=== PATIENT | female | born 1940 | race African-American/Black ===

== ENCOUNTER 2018-05-11 18:25 | Inpatient (IN) | payer MEDICARE, MEDICAID ==
[~2018-05-11] VITALS: Ht 167.6 cm; Wt 68.0 kg
[2018-05-11] MEDS ORDERED: ACETAMINOPHEN 325MG TABLET PO STA (21:33)
[2018-05-11] MEDS ORDERED: SODIUM CHLORIDE 0.9% 1,000 ML IV ONE ×2 (21:33→23:30)
[2018-05-11 21:48] LABS: CLARITY URINE TURBID (CLEAR); COLOR URINE DARK YELLOW (YELLOW); KETONES URINE TRACE (NEGATIVE); LEUKOCYTE ESTERASE URINE 1+ (NEGATIVE); NITRITE URINE NEGATIVE (NEGATIVE); OCCULT BLOOD URINE 2+ (NEGATIVE); PROTEIN URINE 4+ (NEGATIVE)
[2018-05-11 21:59] LABS: EOSINOPHILS % 0.4 % (0.0-5.0); HEMATOCRIT. 39.6 % (36.0-48.0); HEMOGLOBIN. 12.6 g/dL (12.0-16.0); MEAN CORPUSCULAR HEMOGLOBIN 20.5 pg (28.0-32.0); MEAN CORPUSCULAR VOLUME 64.2 fL (81.0-99.0); MEAN PLATELET VOLUME 10.7 fl (7.4-10.4); MONOCYTES % 14.2 % (2.0-8.0); NEUTROPHILS % 67.4 % (40.0-76.0); PLATELET 112 x1000/uL (130-400); RED BLOOD CELL COUNT 6.16 mill/uL (4.2-5.4); RED CELL DISTRIBUTION WIDTH 15.4 % (11.6-14.6)
[2018-05-11 22:02] LABS: CHLORIDE 100 mEq/L (98-107)
[2018-05-11 22:05] LABS: INR 1.1; PROTHROMBIN TIME 10.7 sec (9.1-11.1)
[2018-05-11 22:25] LABS: PLATELET ESTIMATE DECREASED
[2018-05-11] MEDS ORDERED: CEFTRIAXONE 1 G PREMIX 50 ML IV ONE (23:30)
[2018-05-12 11:28] VITALS: BP 103/61
[2018-05-12 11:32] VITALS: BP 103/61
[2018-05-12 12:00] VITALS: BP 103/61
[2018-05-12] MEDS ORDERED: HYDROCODONE/ACETAMINOPHEN 5/325MG TABLET PO PRN (12:00)
[2018-05-12] MEDS ORDERED: MORPHINE SULFATE 4 MG/ML CPJ (NOT FOR IM USE) IV PRN (12:00)
[2018-05-12] MEDS ORDERED: CLONIDINE 0.1MG TABLET PO PRN (12:00)
[2018-05-12] MEDS ORDERED: ONDANSETRON HCL 4MG/2ML INJ IV PRN (12:00)
[2018-05-12] MEDS ORDERED: LORAZEPAM 2MG/ML CPJ IV PRN (12:00)
[2018-05-12] MEDS ORDERED: ENOXAPARIN 40MG/0.4ML SYR SUBCUT SCH (12:00)
[2018-05-12] MEDS: FERROUS SULFATE 325MG TABLET PO SCH (12:57)
[2018-05-12] MEDS: THIAMINE HCL 100MG TABLET PO SCH (12:57)
[2018-05-12] MEDS: SODIUM CHLORIDE 0.9% 1,000 ML IV SCH (13:27)
[2018-05-12] MEDS: ENOXAPARIN 30MG/0.3ML SYR SUBCUT SCH (13:56)
[2018-05-12 16:00] VITALS: BP 113/62
[2018-05-12 16:26] LABS: CREATINE KINASE 153 IU/L (26-192)
[2018-05-12 16:28] LABS: CREATINE KINASE MB FRACTION 1.4 ng/mL (0.5-3.6)
[2018-05-12 20:00] VITALS: BP 102/56
[2018-05-12] MEDS ORDERED: CEFTRIAXONE 1 G PREMIX 50 ML IV SCH (23:15)
[2018-05-12] MEDS ORDERED: SODIUM CHLORIDE 0.9% 1,000 ML IV SCH (23:15)
[2018-05-13] VITALS: BP 101/51
[2018-05-13] MEDS: SODIUM CHLORIDE 0.9% 1,000 ML IV SCH ×3 (00:20→19:00)
[2018-05-13] MEDS: CEFTRIAXONE 1 G PREMIX 50 ML IV SCH (01:15)
[2018-05-13 01:37] LABS: CREATINE KINASE 178 IU/L (26-192)
[2018-05-13 01:38] LABS: CREATINE KINASE MB FRACTION 1.1 ng/mL (0.5-3.6)
[2018-05-13 04:00] VITALS: BP 101/60
[2018-05-13 07:56] VITALS: BP 101/61
[2018-05-13] MEDS: FERROUS SULFATE 325MG TABLET PO SCH (08:46)
[2018-05-13] MEDS: THIAMINE HCL 100MG TABLET PO SCH (08:46)
[2018-05-13] MEDS: ENOXAPARIN 30MG/0.3ML SYR SUBCUT SCH (08:46)
[2018-05-13 09:27] LABS: HEMATOCRIT. 31.2 % (36.0-48.0); HEMOGLOBIN. 9.9 g/dL (12.0-16.0); MEAN CORPUSCULAR HEMOGLOBIN 20.5 pg (28.0-32.0); MEAN CORPUSCULAR VOLUME 64.1 fL (81.0-99.0); MEAN PLATELET VOLUME 10.5 fl (7.4-10.4); PLATELET 125 x1000/uL (130-400); RED BLOOD CELL COUNT 4.86 mill/uL (4.2-5.4); RED CELL DISTRIBUTION WIDTH 16.1 % (11.6-14.6)
[2018-05-13 09:44] LABS: PHOSPHORUS 3.7 mg/dL (2.5-4.9)
[2018-05-13 12:00] VITALS: BP 107/57
[2018-05-13 16:00] VITALS: BP 112/69
[2018-05-13 19:29] LABS: PLATELET ESTIMATE DECREASED
[2018-05-13 20:00] VITALS: BP 106/60
[2018-05-14] MEDS: CEFTRIAXONE 1 G PREMIX 50 ML IV SCH (00:41)
[2018-05-14] MEDS: SODIUM CHLORIDE 0.9% 1,000 ML IV SCH (02:27)
[2018-05-14 04:00] VITALS: BP 117/60
[2018-05-14 08:00] VITALS: BP 115/69
[2018-05-14] MEDS: FERROUS SULFATE 325MG TABLET PO SCH (08:06)
[2018-05-14] MEDS: THIAMINE HCL 100MG TABLET PO SCH (08:07)
[2018-05-14] MEDS: ENOXAPARIN 30MG/0.3ML SYR SUBCUT SCH (08:07)
[2018-05-14 12:00] VITALS: BP 120/71
[2018-05-14 14:18] LABS: HEMOGLOBIN. 9.9 g/dL (12.0-16.0); MEAN CORPUSCULAR HEMOGLOBIN 20.3 pg (28.0-32.0); MEAN CORPUSCULAR VOLUME 63.3 fL (81.0-99.0); MEAN PLATELET VOLUME 9.5 fl (7.4-10.4); PLATELET 129 x1000/uL (130-400); RED BLOOD CELL COUNT 4.89 mill/uL (4.2-5.4); RED CELL DISTRIBUTION WIDTH 16.2 % (11.6-14.6)
[2018-05-14 19:01] LABS: PHOSPHORUS 3.7 mg/dL (2.5-4.9)
[2018-05-14 20:00] VITALS: BP 114/68
[2018-05-15] VITALS (14 sets, daily range): BP systolic 112–141; BP diastolic 65–89
[2018-05-15] MEDS: CEFTRIAXONE 1 G PREMIX 50 ML IV SCH (00:22)
[2018-05-15 06:37] LABS: HEMATOCRIT. 28.9 % (36.0-48.0); HEMOGLOBIN. 9.3 g/dL (12.0-16.0); MEAN CORPUSCULAR HEMOGLOBIN 20.4 pg (28.0-32.0); MEAN CORPUSCULAR VOLUME 63.6 fL (81.0-99.0); RED BLOOD CELL COUNT 4.55 mill/uL (4.2-5.4); RED CELL DISTRIBUTION WIDTH 16.2 % (11.6-14.6)
[2018-05-15] MEDS ORDERED: FENTANYL CITRATE/PF 50MCG/ML 2ML VIAL ONE (07:30)
[2018-05-15] MEDS ORDERED: LIDOCAINE HCL 1% 20ML VIAL (Pyxis) INJ ONE (07:32)
[2018-05-15] MEDS ORDERED: SODIUM BICARBONATE 4% (2.4MEQ) 5ML VIAL IV ONE (07:33)
[2018-05-15] MEDS ORDERED: FENTANYL CITRATE/PF 50MCG/ML 2ML VIAL IV NR (09:30)
[2018-05-15 09:55] LABS: PLATELET 132 x1000/uL (130-400)
[2018-05-15 10:02] LABS: ATYPICAL LYMPHOCYTES 1; PLATELET ESTIMATE NORMAL
[2018-05-15] MEDS: THIAMINE HCL 100MG TABLET PO SCH (10:21)
[2018-05-15] MEDS: FERROUS SULFATE 325MG TABLET PO SCH (10:21)
[2018-05-15] MEDS: ENOXAPARIN 30MG/0.3ML SYR SUBCUT SCH (10:21)
[2018-05-15 15:22] LABS: HEMATOCRIT 30.2 % (36.0-48.0); HEMOGLOBIN 9.8 g/dL (12.0-16.0)
[2018-05-16] VITALS: BP 126/73
[2018-05-16] MEDS: CEFTRIAXONE 1 G PREMIX 50 ML IV SCH (01:00)
[2018-05-16 04:00] VITALS: BP 125/63
[2018-05-16] MEDS ORDERED: FUROSEMIDE 40MG/4ML VIAL IVP NR (07:15)
[2018-05-16] MEDS: THIAMINE HCL 100MG TABLET PO SCH (08:13)
[2018-05-16] MEDS: FERROUS SULFATE 325MG TABLET PO SCH (08:13)
[2018-05-16] MEDS: ENOXAPARIN 30MG/0.3ML SYR SUBCUT SCH (08:13)
[2018-05-16 09:22] LABS: BASOPHILS % 3.2 % (0.0-2.0); EOSINOPHILS % 0.4 % (0.0-5.0); HEMATOCRIT. 30.8 % (36.0-48.0); HEMOGLOBIN. 9.9 g/dL (12.0-16.0); LYMPHOCYTES % 27.9 % (20.0-50.0); MEAN CORPUSCULAR HEMOGLOBIN 20.4 pg (28.0-32.0); MEAN CORPUSCULAR VOLUME 63.8 fL (81.0-99.0); MONOCYTES % 13.6 % (2.0-8.0); NEUTROPHILS % 54.9 % (40.0-76.0); RED BLOOD CELL COUNT 4.83 mill/uL (4.2-5.4); RED CELL DISTRIBUTION WIDTH 16.2 % (11.6-14.6)
[2018-05-16 10:06] LABS: A/G RATIO 0.5 (0.7-1.7); ALBUMIN 1.9 g/dL (2.9-4.4); ALPHA-1-GLOBULIN 0.2 g/dL (0.0-0.4); ALPHA-2-GLOBULIN 0.7 g/dL (0.4-1.0); BETA GLOBULIN 0.9 g/dL (0.7-1.3); GAMMA GLOBULINS 1.9 g/dL (0.4-1.8); GLOBULIN TOTAL 3.7 g/dL (2.2-3.9); M-SPIKE Not Observed g/dL (Not Observed); TOTAL PROTEIN SERUM 5.6 g/dL (6.0-8.5)
[2018-05-16 10:07] LABS: PLATELET 159 x1000/uL (130-400)
[2018-05-16 11:58] VITALS: BP 122/57
[2018-05-16 16:00] VITALS: BP 129/74
[2018-05-16 17:50] LABS: HEPATITIS B SURFACE ANTIGEN NEGATIVE
[2018-05-16 18:20] LABS: HEPATITIS A AB IGM NEGATIVE (NEGATIVE)
[2018-05-16 19:06] LABS: ANTI-DNA DOUBLE STRANDED QUANT 1 IU/mL (0-9)
[2018-05-16 20:00] VITALS: BP 112/75
[2018-05-17] VITALS: BP 122/72
[2018-05-17] MEDS: CEFTRIAXONE 1 G PREMIX 50 ML IV SCH (01:32)
[2018-05-17 04:00] VITALS: BP 135/67
[2018-05-17 08:00] VITALS: BP 130/77
[2018-05-17] MEDS: FERROUS SULFATE 325MG TABLET PO SCH (08:26)
[2018-05-17] MEDS: THIAMINE HCL 100MG TABLET PO SCH (08:26)
[2018-05-17] MEDS: ENOXAPARIN 30MG/0.3ML SYR SUBCUT SCH (08:26)
[2018-05-17 09:06] LABS: COMPLEMENT C3 118 mg/dL (82-167)
[2018-05-17 10:02] LABS: HEMATOCRIT. 30.7 % (36.0-48.0); HEMOGLOBIN. 9.8 g/dL (12.0-16.0); MEAN CORPUSCULAR HEMOGLOBIN 20.2 pg (28.0-32.0); MEAN CORPUSCULAR VOLUME 63.4 fL (81.0-99.0); RED BLOOD CELL COUNT 4.85 mill/uL (4.2-5.4); RED CELL DISTRIBUTION WIDTH 16.2 % (11.6-14.6)
[2018-05-17 12:00] VITALS: BP 132/72
[2018-05-17 13:35] VITALS: BP 132/72
[2018-05-17 15:08] LABS: ANA IFA Negative (.)
[2018-05-18 09:05] LABS: GLOMERULAR BASEMENT MEMB AB 5 units (0-20)
[2018-05-18 13:07] LABS: ANTI-MYELOPEROXIDASE AB < 9.0 U/mL (0.0-9.0); ANTI-PROTEINASE 3 ABS < 3.5 U/mL (0.0-3.5)
[2018-05-18 14:19] LABS: ATYPICAL P-ANCA <1:20 titer (Neg:<1:20); CYTOPLASMIC C-ANCA <1:20 titer (Neg:<1:20); PERINUCLEAR P-ANCA <1:20 titer (Neg:<1:20)
== END 2018-05-17 16:03 | disposition home or self-care (01) | DRG 871 ==
LOC: ER 19:20 → 8WST 05-12 00:04 → ENRESERV 05-12 09:22 → 8WST 05-12 11:11
PROVIDERS: ADMIT Internal Medicine Nephrology; ATTEND Internal Medicine Nephrology
PROC: 0TB13ZX Excision of Left Kidney, Percutaneous Approach, Diagnostic (ICD-10-PCS; principal; 2018-05-15)
DX: A41.9 Sepsis, unspecified organism (principal); N18.6 End stage renal disease; I50.31 Acute diastolic (congestive) heart failure; E43 Unspecified severe protein-calorie malnutrition; N39.0 Urinary tract infection, site not specified; I13.2 Hypertensive heart and chronic kidney disease with heart failure and with stage 5 chronic kidney disease, or end stage renal disease; N17.9 Acute kidney failure, unspecified; I95.9 Hypotension, unspecified; D63.8 Anemia in other chronic diseases classified elsewhere; J44.9 Chronic obstructive pulmonary disease, unspecified; Z68.24 Body mass index [BMI] 24.0-24.9, adult; Z88.6 Allergy status to analgesic agent
CPT/HCPCS: 36415; 71045; 76770; 76942; 80048; 82550; 82553; 82575; 83520; 83605; 83735; 83970; 84100; 84155; 84156; 84165; 84484; 85014; 85018; 86160; 86225; 86256; 86705; 86709; 86803; 87207; 87340; 87804; 88305; 88346; 88348; 93005; 93306; 96361; 96374; 97162; 97535; 99285; J0696; J1650; J1940; J3010; J3490; J7030; J7050

== ENCOUNTER 2019-09-05 11:42 | Emergency (ER) | payer MEDICARE, MEDICAID ==
[~2019-09-05] VITALS: Ht 167.6 cm; Wt 78.0 kg
[2019-09-05 12:37] LABS: BASOPHILS % 0.8 % (0.0-2.0); EOSINOPHILS % 0.8 % (0.0-5.0); HEMATOCRIT. 39.8 % (36.0-48.0); HEMOGLOBIN. 12.6 g/dL (12.0-16.0); LYMPHOCYTES % 41.1 % (20.0-50.0); MEAN CORPUSCULAR HEMOGLOBIN 21.6 pg (28.0-32.0); MEAN CORPUSCULAR VOLUME 68.4 fL (81.0-99.0); MEAN PLATELET VOLUME 10.2 fl (7.4-10.4); MONOCYTES % 4.7 % (2.0-8.0); NEUTROPHILS % 52.6 % (40.0-76.0); PLATELET 202 x1000/uL (130-400); RED BLOOD CELL COUNT 5.83 mill/uL (4.2-5.4); RED CELL DISTRIBUTION WIDTH 15.5 % (11.6-14.6)
[2019-09-05 12:42] LABS: CHLORIDE 109 mEq/L (98-107)
[2019-09-05 12:44] LABS: PROTHROMBIN TIME 10.7 sec (9.6-11.0)
[2019-09-05 12:48] LABS: LDL CHOLESTEROL 150 mg/dL (5-100)
[2019-09-05 13:05] LABS: PLATELET ESTIMATE NORMAL
[2019-09-05] MEDS ORDERED: PREDNISONE 20MG TABLET PO NR (15:00)
[2019-09-05] MEDS ORDERED: ACYCLOVIR 400 MG TABLET PO NR (15:00)
[2019-09-05 15:48] VITALS: BP 137/81
== END 2019-09-05 16:00 | disposition home or self-care (01) ==
LOC: ER 11:42 → CANBEDREQ 13:50 → SUPCPDRO 14:14 → ER 16:00
DX: R29.810 Facial weakness (principal); E78.5 Hyperlipidemia, unspecified; E86.0 Dehydration; G89.29 Other chronic pain; M54.9 Dorsalgia, unspecified; Z88.6 Allergy status to analgesic agent
CPT/HCPCS: 36415; 70450; 71045; 80053; 83721; 83880; 84484; 85025; 85610; 93005; 99285; J7512